=== PATIENT | female | born 1995 | race Caucasian/White ===

== ENCOUNTER 2020-07-27 03:59 | Inpatient (IN) ==
[2020-07-27] MEDS ORDERED: FAMOTIDINE 20 MG/2 ML VIAL IV PRN (04:16)
[2020-07-27] MEDS ORDERED: BUTORPHANOL 2 MG/ML VIAL IV PRN (04:16)
[2020-07-27] MEDS ORDERED: ONDANSETRON 4 MG/2 ML VIAL IV PRN ×2 (04:16→08:04)
[2020-07-27] MEDS ORDERED: MEPERIDINE 50 MG/1 ML VIAL IV PRN (04:16)
[2020-07-27] MEDS ORDERED: CITRIC ACID/SODIUM CITRATE 30 ML UDCUP PO PRN (04:18)
[2020-07-27] MEDS ORDERED: AMPICILLIN INJ 2,000 MG in SODIUM CHLORIDE 0.9% 100 ML IV ONE (04:19)
[2020-07-27] MEDS ORDERED: NALOXONE 0.4 MG/ML VIAL IV PRN (04:20)
[2020-07-27] MEDS ORDERED: ePHEDrine 50 MG/ML VIAL IV PRN (04:20)
[2020-07-27] MEDS ORDERED: LACTATED RINGERS 250 ML IV PRN (04:20)
[2020-07-27] MEDS ORDERED: diphenhydrAMINE 50 MG/1 ML VIAL IV PRN ×2 (04:20)
[2020-07-27] MEDS ORDERED: hydrOXYzine HCL 25 MG/1 ML VIAL IM PRN (04:20)
[2020-07-27] MEDS ORDERED: OXYTOCIN/LR 20 UNIT/1,000 ML BAG IV ONE ×2 (04:21→08:04)
[2020-07-27] MEDS ORDERED: fentaNYL 2 MCG/ROPIV 0.2% EPID 100 ML EPIDURAL SCH (04:30)
[2020-07-27] MEDS: LACTATED RINGERS 1,000 ML IV SCH ×2 (04:30→05:11)
[2020-07-27 04:45] LABS: Basophils % 0.2 % (0.0-0.8); Eosinophils % 0.2 % (0.00-10.9); Hematocrit 35.2 VOL% (35.7-47.0); Hemoglobin 11.6 GM/DL (12.0-16.0); Immature Granulocytes % 0.6 %; Immature Granulocytes Absolute 0.08 #; Lymphocytes # 1.5 10*3/uL (1.4-4.0); Lymphocytes % 10.2 % (21.3-54.2); Mean Corpuscular Volume 91.9 FL (87-102); Mean Platelet Volume 10.3 FL (9.6-12.0); Monocytes % 4.5 % (1.7-12.7); Neutrophils % 84.3 % (38.7-73.9); Platelet Count 317 T/CUMM (130-400); Red Blood Count 3.83 MC/CUMM (3.8-5.5); Red Cell Distribution Width 12.3 % (9.3-17.3); White Blood Count 14.3 T/CUMM (4-12)
[2020-07-27 04:59] LABS: Albumin 2.5 G/DL (3.4-5.0); Bilirubin,Total 0.4 MG/DL (0.2-1.0); Calcium 9.2 MG/DL (8.5-10.1); Osmolality,Calculated 266.1 MOS/KG (273-304); Potassium 4.2 MMOL/L (3.5-5.1); Total Protein 6.8 G/DL (6.4-8.2)
[2020-07-27] MEDS ORDERED: miSOPROStoL 200 MCG TABLET ONE (05:51)
[2020-07-27] MEDS ORDERED: TRANEXAMIC ACID 1,000 MG/10 ML VIAL ONE (05:52)
[2020-07-27] MEDS ORDERED: LIDOCAINE 1% 50 ML VIAL ONE ×2 (05:52→07:03)
[2020-07-27] MEDS ORDERED: METHYLERGONOVINE 0.2 MG/1 ML AMP ONE (05:52)
[2020-07-27] MEDS ORDERED: CARBOPROST TROMETHAMINE 250 MCG/ML AMP IM ONE ×2 (05:52→07:04)
[2020-07-27] MEDS ORDERED: SODIUM CHLORIDE 0.9% 0 ML IV ONE (05:53)
[2020-07-27 08:02] LABS: Cord Arterial Blood HCO3 26.8 MMOL/L; Cord Venous Blood HCO3 24.2 MMOL/L; Cord Venous Blood PCO2 43.7 MMHG; Cord Venous Blood PO2 42.2
[2020-07-27] MEDS ORDERED: ACETAMINOPHEN 325 MG TABLET PO PRN (08:04)
[2020-07-27] MEDS ORDERED: oxyCODONE/ACETAMINOPHEN 5-325 MG TABLET PO PRN (08:04)
[2020-07-27] MEDS ORDERED: HYDROCORTISONE 2.5% RECTAL CREAM 30 GM TUBE TOP PRN (08:04)
[2020-07-27] MEDS ORDERED: BISACODYL 10 MG SUPP RECTAL PRN (08:04)
[2020-07-27] MEDS ORDERED: RHO(D) IMMUNE GLOBULIN 300 MCG SYRINGE IM ONE (08:04)
[2020-07-27] MEDS ORDERED: WITCH HAZEL PADS 100/JAR TOP PRN (08:04)
[2020-07-27] MEDS ORDERED: BENZOCAINE 20%/MENTHOL 0.5% SPRAY 56 GM CAN TOP PRN (08:04)
[2020-07-27] MEDS ORDERED: DIPH/TET/ACEL PERT BOOSTER VACCINE 0.5 ML VIAL IM ONE (08:04)
[2020-07-27] MEDS ORDERED: MEASLES/MUMPS/RUBELLA VACCINE 0.5 ML VIAL SUBCUT ONE (08:04)
[2020-07-27] MEDS ORDERED: LANOLIN 50% CREAM 0.3 OZ TUBE TOP PRN (08:04)
[2020-07-27] MEDS: oxyCODONE/ACETAMINOPHEN 5-325 MG TABLET PO PRN (18:03)
[2020-07-27] MEDS: IBUPROFEN 800 MG TABLET PO PRN (18:05)
[2020-07-27] MEDS: DOCUSATE SODIUM 100 MG CAPSULE PO SCH (21:48)
[2020-07-28 07:22] LABS: Basophils % 0.3 % (0.0-0.8); Eosinophils # 0.1 10*3/uL (0.0-0.87); Eosinophils % 0.7 % (0.00-10.9); Hematocrit 32.8 VOL% (35.7-47.0); Hemoglobin 11.2 GM/DL (12.0-16.0); Immature Granulocytes % 0.5 %; Immature Granulocytes Absolute 0.06 #; Lymphocytes % 15.6 % (21.3-54.2); Mean Corpuscular HGB Conc 34.1 GM/DL (32-36); Mean Corpuscular Volume 91.6 FL (87-102); Mean Platelet Volume 10.3 FL (9.6-12.0); Monocytes % 6.1 % (1.7-12.7); Neutrophils % 76.8 % (38.7-73.9); Platelet Count 294 T/CUMM (130-400); Red Blood Count 3.58 MC/CUMM (3.8-5.5); Red Cell Distribution Width 12.2 % (9.3-17.3); White Blood Count 12.5 T/CUMM (4-12)
[2020-07-28] MEDS: DOCUSATE SODIUM 100 MG CAPSULE PO SCH ×2 (08:59→21:16)
[2020-07-28] MEDS: IBUPROFEN 800 MG TABLET PO PRN ×2 (15:30→21:19)
[2020-07-28] MEDS: oxyCODONE/ACETAMINOPHEN 5-325 MG TABLET PO PRN (16:26)
[2020-07-29 08:13] VITALS: BP 125/90
[2020-07-29] MEDS: DOCUSATE SODIUM 100 MG CAPSULE PO SCH (08:55)
== END 2020-07-29 12:55 | disposition home or self-care (01) | DRG 807 ==
LOC: N.LDOUT 03:59 → N.LD 04:01 → N.OB 10:57
PROVIDERS: ADMIT Obstetrics & Gynecology; ATTEND Obstetrics & Gynecology